=== PATIENT | female | born 1975 | race Caucasian/White ===

== ENCOUNTER 2016-09-07 17:14 | Emergency (ER) | payer MEDICAID ==
[2016-09-07] MEDS ORDERED: Ketorolac INJ* 30 MG/ML 1 ML VIAL IV ONE (19:17)
[2016-09-07] MEDS ORDERED: NS 0.9% 1000 ML* 1,000 ML IV ONE (19:17)
[2016-09-07] MEDS ORDERED: Ondansetron INJ* 2 MG/ML VIAL IV ONE (19:17)
[2016-09-07 20:02] LABS: Hematocrit 38 % (35-47); Hemoglobin 11.9 g/dl (12.0-16.0); Mean Corpuscular HGB Conc 32 g/dl (31-36); Mean Corpuscular Hemoglobin 23 pg (27-31); Mean Corpuscular Volume 73 fL (80-97); Mean Platelet Volume 8 um3 (7.4-10.4); Red Blood Count 5.15 10^6/ul (4.0-5.4); Red Cell Distribution Width 18 % (10.5-15); White Blood Count 8.8 10^3/ul (3.5-10.8)
[2016-09-07 20:14] LABS: Add Diff/Slide Review? Slide Review Added; Comments Flag Yes
--- NOTE | 2016-09-07 20:22 | ED ---
Nicky Disla Alok, scribed for Terry Gray MD on 09/07/16 at 1923 . Abdominal Pain/Female - HPI Summary HPI Summary: 41 y/o female with hx of brain tumors presents to the ED with c/o pain in her back, sides and flank bilaterally. Pt also adds she has been nauseous and unable to keep food down for the past 3 weeks following 30 rounds of radiation therapy. Pt is on nausea medication with no affect and has been taking Levaquin for a UTI since 5 days ago which has made her back pain as well as bilateral side and flank pain worse. - History of Current Complaint Chief Complaint: EDFlankPain Stated Complaint: FLANK PAIN/BACK PAIN Time Seen by Provider: 09/07/16 19:13 Hx Obtained From: Patient Hx Last Menstrual Period: DEPOPROVERA ?: No Onset/Duration: Gradual Onset, Lasting Weeks, Still Present Timing: Constant Severity Initially: Moderate Severity Currently: Moderate Pain Intensity: 5 Pain Scale Used: 0-10 Numeric Location: Flank - Bilateral Radiates to: Back, Other - Sides (bilaterally) Character: Sharp Aggravating Factor(s): Other: - Levaquin since 5 days ago Alleviating Factor(s): Nothing Associated Signs and Symptoms: Positive: Nausea Allergies/Adverse Reactions: Allergies Allergy/AdvReac Type Severity Reaction Status Date / Time Sulfamethoxazole Allergy Mild Stomach Verified 09/07/16 20:57 w/Trimethoprim Cramps [From Bactrim] Ampicillin AdvReac Hives Verified 09/07/16 20:57 Doxycycline AdvReac Hives Verified 09/07/16 20:57 Erythromycin AdvReac Stomach Verified 09/07/16 20:57 Cramps Fluconazole [From Diflucan] AdvReac Hives Verified 09/07/16 20:57 Nitrofurantoin AdvReac Hives Verified 09/07/16 20:57 [From Macrobid] PMH/Surg Hx/FS Hx/Imm Hx Endocrine/Hematology History: Reports: Hx Thyroid Disease Denies: Hx Diabetes Cardiovascular History: Reports: Hx Hypertension Denies: Hx Pacemaker/ICD Respiratory History: Denies: Hx Asthma, Hx Chronic Obstructive Pulmonary Disease (COPD) GI History: Denies: Hx Ulcer History: Denies: Hx Renal Disease Sensory History: Denies: Hx Hearing Aid Psychiatric History: Denies: Hx Panic Disorder - Cancer History Cancer Type, Location and Year: Brain Tumor x2 Date and Location of Last Treatment: 3 weeks ago Hx Radiation Therapy: Yes - 30 rounds Infectious Disease History: No Infectious Disease History: Denies: Hx Hepatitis, Hx Human Immunodeficiency Virus (HIV), History Other Infectious Disease, Traveled Outside the [place] in Last 30 Days - Family History Known Family History: Positive: Renal Disease Negative: Cardiac Disease, Diabetes - Social History Occupation: Unemployed Lives: With Family - Mother Alcohol Use: None Substance Use Type: Reports: None Smoking Status (MU): Never Smoked Tobacco Review of Systems Negative: Fever Positive: Abdominal Pain - Flank bilateral, Nausea Positive: Other - Back All Other Systems Reviewed And Are Negative: Yes Physical Exam Triage Information Reviewed: Yes Vital Signs On Initial Exam: Initial Vitals Temp Pulse Resp BP Pulse Ox 97.3 F 101 16 153/87 100 09/07/16 17:26 09/07/16 17:26 09/07/16 17:26 09/07/16 17:26 09/07/16 17:26 Vital Signs Reviewed: Yes Appearance: Positive: No Pain Distress, Obese Skin: Positive: Warm Head/Face: Positive: Normal Head/Face Inspection Eyes: Positive: ENOC ENT: Positive: Hearing grossly normal Neck: Positive: Supple Respiratory/Lung Sounds: Positive: Clear to Auscultation, Breath Sounds Present Cardiovascular: Positive: RRR Abdomen Description: Positive: Nontender, Soft. Negative: CVA Tenderness (R), CVA Tenderness (L) Bowel Sounds: Positive: Present Musculoskeletal: Positive: Strength/ROM Intact Neurological: Positive: Sensory/Motor Intact, Alert, Oriented to Person Place, Time Psychiatric: Positive: Affect/Mood Appropriate Diagnostics - Vital Signs Vital Signs Temp Pulse Resp BP Pulse Ox 09/07/16 18:36 97.5 F 95 16 149/85 100 09/07/16 17:26 97.3 F 101 16 153/87 100 - Laboratory Lab Results: Lab Results 09/07/16 Range/Units 19:50 WBC 8.8 (3.5-10.8) 10^3/ul RBC 5.15 (4.0-5.4) 10^6/ul Hgb 11.9 L (12.0-16.0) g/dl Hct 38 (35-47) % MCV 73 L (80-97) fL MCH 23 L (27-31) pg MCHC 32 (31-36) g/dl RDW 18 H (10.5-15) % Plt Count 335 (150-450) 10^3/ul MPV 8 (7.4-10.4) um3 Neut % (Auto) 50.6 (38-83) % Lymph % (Auto) 35.7 (25-47) % Wolfe % (Auto) 9.5 H (1-9) % Eos % (Auto) 2.8 (0-6) % Baso % (Auto) 1.4 (0-2) % Absolute Neuts (auto) 4.4 (1.5-7.7) 10^3/ul Absolute Lymphs (auto) 3.1 (1.0-4.8) 10^3/ul Absolute Monos (auto) 0.8 (0-0.8) 10^3/ul Absolute Eos (auto) 0.2 (0-0.6) 10^3/ul Absolute Basos (auto) 0.1 (0-0.2) 10^3/ul Absolute Nucleated RBC 0 10^3/ul Nucleated RBC % 0 Result Diagrams: 09/07/16 19:50 09/07/16 19:50 Lab Statement: Any lab studies that have been ordered have been reviewed, and results considered in the medical decision making process. Re-Evaluation - Re-Evaluation First Eval Re-Evaluation Time: 20:49 Change: Improved - results d/w pt Abdominal Pain Fem Course/Dx - Diagnoses Provider Diagnoses: FLANK PAIN Discharge - Discharge Plan Condition: Stable Disposition: HOME Patient Education Materials: Flank Pain (ED) Referrals: No Primary Care Phys,NOPCP [Primary Care Provider] - [facility] [Outside] - 5 Days Additional Instructions: Please follow up with a primary care provider later this week The documentation as recorded by the Nicky tamayo Alok accurately reflects the service I personally performed and the decisions made by , Terry Gray MD.
[2016-09-07 20:25] LABS: BUN/Creatinine Ratio 7.7 (8-20); C Reactive Protein 14.38 mg/L (< 5.00); EGFR African American 74.7 (>60); EGFR Non-African American 58.1 (>60); Globulin 3.3 g/dL (2-4); Potassium 3.5 mmol/L (3.5-5.0); Total Bilirubin 0.3 mg/dL (0.2-1.0); Total Protein 7.3 g/dL (6.4-8.9)
[2016-09-07 20:31] LABS: Urine Bacteria 1+ (Absent); Urine Bilirubin Negative (Negative); Urine Glucose Negative (Negative); Urine Nitrite Negative (Negative)
[2016-09-07 20:56] VITALS: BP 133/87
== END 2016-09-07 21:02 | disposition home or self-care (01) ==
LOC: ED 17:14
DX: R10.84 Generalized abdominal pain (principal); M54.9 Dorsalgia, unspecified; R11.0 Nausea
CPT/HCPCS: 36415; 80053; 81003; 81015; 83605; 83690; 83735; 84702; 85025; 86140; 87086; 96374; 96375; 99283; J1885; J2405

== ENCOUNTER 2017-10-08 17:31 | Emergency (ER) | payer BC, OTHER ==
[2017-10-08] MEDS ORDERED: diPHENhydraMINE IV* 50 MG/ML 1 ml VIAL (BENADRYL) IV ONE (19:00)
[2017-10-08] MEDS ORDERED: Metoclopramide IV* 5 MG/ML 2 ML VIAL IV ONE (19:00)
[2017-10-08] MEDS ORDERED: NS 0.9% 1000 ML* 1,000 ML IV ONE (19:00)
[2017-10-08] MEDS ORDERED: Morphine INJ* 10 MG/ML 1 ML CARPUJECT IV ONE (19:00)
[2017-10-08] MEDS ORDERED: Morphine VIAL* 4 MG/ML VIAL (1 ml vial) IV ONE (19:34)
--- NOTE | 2017-10-08 20:35 | RAD ---
Indication: Headache for 4 days. History of brain tumors. Comparison: December 26, 2015 MRI. Technique: Noncontrast CT head. 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 Similar involvement at the RIGHT clinoid process and margins of the sella turcica. Unchanged extensive indolent thickening of the inner table of the frontal bone. Unremarkable cerebral sulci, ventricles, and patent basal cisterns. No intra or extra-axial soft tissue lesions or fluid collections evident within limits of noncontrast CT. Negative for coronado matter white matter obscuration intra or extra-axial hemorrhage, or mass effect. No suspicious abnormality within the partially visualized orbits. Clear partially visualized paranasal sinuses and mastoid air spaces. IMPRESSION: 1. Negative for intra or extra-axial hemorrhage or mass effect. 2. Negative for coronado matter white matter obscuration. 3. 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 Similar involvement at the RIGHT clinoid process and margins of the sella turcica. 4. Most accurate follow-up of previous extra-axial lesion at the skull base would require contrast-enhanced MRI. Correlate with clinical assessment. The patient may have had a more recent MRI follow-up then the December 26, 2015 exam on [facility].
--- NOTE | 2017-10-08 21:14 | ED ---
Mark Disla Elizabeth, scribed for Filippo Marie on 10/08/17 at 1919 . Headache - HPI Summary HPI Summary: This patient is a 42 year old F presenting to [facility] c/o throbbing headache since 4 days ago Patient has a history of 2 brain tumors and finished radiation 1 year ago. Symptoms aggravated by nothing. Symptoms alleviated by nothing. Patient reports swelling at the back of her neck, and intermittent numbness in arms and legs. Patient denies fever. - History Of Current Complaint Chief Complaint: EDHeadache Stated Complaint: HEADACHE X 4 DAYS/2 BRAIN TUMORS Time Seen by Provider: 10/08/17 18:36 Hx Obtained From: Patient Hx Last Menstrual Period: DEPOPROVERA Onset/Duration: Started days ago - started 4 days ago, Still Present Initially Headache Was: Moderate Currently Pain Is: Moderate Timing: Constant, Days Character: Throbbing Location of Headache: Diffuse Aggravating Factor: Nothing Allevating Factors: Nothing Associated Signs And Symptoms: Neck Pain, Other (Noted In Comments) - numbness in extremities - Allergies/Home Medications Allergies/Adverse Reactions: Allergies Allergy/AdvReac Type Severity Reaction Status Date / Time ampicillin Allergy Hives Verified 10/08/17 18:17 doxycycline Allergy Hives Verified 10/08/17 18:17 fluconazole [From Diflucan] Allergy Hives Verified 10/08/17 18:17 nitrofurantoin Allergy Hives Verified 10/08/17 18:17 [From Macrobid] erythromycin base AdvReac Stomach Verified 10/08/17 18:17 Cramps sulfamethoxazole AdvReac Stomach Verified 10/08/17 18:17 [From Bactrim] Cramps trimethoprim [From Bactrim] AdvReac Stomach Verified 10/08/17 18:17 Cramps PMH/Surg Hx/FS Hx/Imm Hx Endocrine/Hematology History: Reports: Hx Thyroid Disease Denies: Hx Diabetes Cardiovascular History: Reports: Hx Hypertension Denies: Hx Pacemaker/ICD Respiratory History: Denies: Hx Asthma, Hx Chronic Obstructive Pulmonary Disease (COPD) GI History: Denies: Hx Ulcer History: Denies: Hx Renal Disease Musculoskeletal History: Reports: Hx Fibromyalgia Sensory History: Denies: Hx Hearing Aid Psychiatric History: Denies: Hx Panic Disorder - Cancer History Cancer Type, Location and Year: Brain Tumor x2 Hx Radiation Therapy: Yes - 30 rounds - Immunization History Date of Tetanus Vaccine: unk Date of Influenza Vaccine: unk Infectious Disease History: No Infectious Disease History: Denies: Hx Hepatitis, Hx Human Immunodeficiency Virus (HIV), History Other Infectious Disease, Traveled Outside the [place] in Last 30 Days - Family History Known Family History: Positive: Unknown, Renal Disease Negative: Cardiac Disease, Diabetes - Social History Alcohol Use: None Substance Use Type: Reports: None Smoking Status (MU): Never Smoked Tobacco Review of Systems Negative: Fever Positive: Edema - swelling in posterior neck Positive: Headache, Numbness - in extremities All Other Systems Reviewed And Are Negative: Yes Physical Exam - Summary Physical Exam Summary: Appearance: Well appearing, no pain distress Skin: warm, dry, reflects adequate perfusion Head/face: normal Eyes: EOMI, ENOC ENT: normal Neck: supple, non-tender Respiratory: CTA, breath sounds present Cardiovascular: RRR, pulses symmetrical ~ Abdomen: non-tender, soft Bowel: present Musculoskeletal: normal, strength/ROM intact Neuro: normal, sensory motor intact, A&Ox3 Triage Information Reviewed: Yes Vital Signs On Initial Exam: Initial Vitals Temp Pulse Resp BP Pulse Ox 97.1 F 113 20 147/113 98 10/08/17 17:33 10/08/17 17:33 10/08/17 17:33 10/08/17 17:33 10/08/17 17:33 Vital Signs Reviewed: Yes Diagnostics - Vital Signs Vital Signs Temp Pulse Resp BP Pulse Ox 10/08/17 17:33 97.1 F 113 20 147/113 98 - Laboratory Lab Statement: Any lab studies that have been ordered have been reviewed, and results considered in the medical decision making process. - CT Brain CT CT Interpretation: Positive (See Comments) - IMPRESSION: 1. Negative for intra or extra-axial hemorrhage or mass effect. 2. Negative for coronado matter white matter obscuration. 3. 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 Similar involvement at the RIGHT clinoid process and margins of the sella turcica. 4. Most accurate follow-up of previous extra-axial lesion at the skull base would require contrast-enhanced MRI. Correlate with clinical assessment. The patient may have had a more recent MRI follow-up then the December 26, 2015 exam on [facility] [place] [facility]. Dr. Marie has reviewed this report. CT Interpretation Completed By: Radiologist Re-Evaluation - Re-Evaluation first re-eval Re-Evaluation Time: 21:05 Change: Unchanged Comment: Discussed imaging results and course of treatment with the patient Headache Course/Dx - Course Course Of Treatment: CT Brain reveals, per radiologist, no acute changes. ED physician has reviewed this radiology report. n the ED course the patient was given IV fluids, morphine, Reglan, and Benadryl. We discussed patient care with Dr. Rubén Daley, neurology, and they recommended that the patient be discharged and follow up with him. Patient will be discharged home with diagnosis of headache and is advised to follow up with her primary care physician in 3-4 days. The patient is agreeable with this plan. - Diagnoses Provider Diagnoses: Headache - Physician Notifications Discussed Care Of Patient With: Rubén Daley MD Instructed by Provider To: Other - Dr. Daley, neurology, recommended that the patient be discharged. Discharge - Sign-Out/Discharge Documenting (check all that apply): Discharge/Admit/Transfer - Discharge Plan Condition: Stable Disposition: HOME Patient Education Materials: Acute Headache (ED) Referrals: Angelita ANGEL ACCOUNTS RECEIVABLE COLLECTOR,Sagrario [Primary Care Provider] - 3 Days (Follow up with primary care physician in 3-4 days.) Additional Instructions: Follow up with primary care physician in 3-4 days. Return to the emergency department with any new or worsening symptoms. - Billing Disposition and Condition Condition: STABLE Disposition: HOME The documentation as recorded by the Mark tamayo Elizabeth accurately reflects the service I personally performed and the decisions made by , Filippo Marie.
[2017-10-08 21:34] VITALS: BP 126/80
== END 2017-10-08 21:30 | disposition home or self-care (01) ==
LOC: ED 17:31
DX: M54.2 Cervicalgia (principal); R51 Headache
CPT/HCPCS: 70450; 99283; J1200; J2270; J2765

== ENCOUNTER 2017-10-24 16:15 | Emergency (ER) | payer BC, OTHER ==
[2017-10-24 16:23] VITALS: BP 144/91
--- NOTE | 2017-10-24 16:46 | UC ---
Upper Extremity HPI - HPI Summary HPI Summary: 42 yo female with multiple medical problems who presents with L arm pain. Patient slipped and fell 2d ago with progressive pain and decreased ROM since that time. No bruising. She also took an engorged tick off her back a couple of days ago. No rash or fevers. - History of Current Complaint Chief Complaint: UCUpperExtremity Stated Complaint: ARM INJURY Hx Last Menstrual Period: depo Pain Intensity: 7 - Allergies/Home Medications Allergies/Adverse Reactions: Allergies Allergy/AdvReac Type Severity Reaction Status Date / Time ampicillin Allergy Hives Verified 10/24/17 16:23 doxycycline Allergy Hives Verified 10/24/17 16:23 fluconazole [From Diflucan] Allergy Hives Verified 10/24/17 16:23 nitrofurantoin Allergy Hives Verified 10/24/17 16:23 [From Macrobid] erythromycin base AdvReac Stomach Verified 10/24/17 16:23 Cramps sulfamethoxazole AdvReac Stomach Verified 10/24/17 16:23 [From Bactrim] Cramps trimethoprim [From Bactrim] AdvReac Stomach Verified 10/24/17 16:23 Cramps Home Medications: Home Medications Oxymorphone HCl [Opana] 20 mg PO BID 10/24/17 [History Confirmed 10/24/17] PMH/Surg Hx/FS Hx/Imm Hx Previously Healthy: No - brain tumor, fibromyalgia - Surgical History Surgical History: None - Family History Known Family History: Positive: Unknown, Renal Disease Negative: Cardiac Disease, Diabetes - Social History Alcohol Use: None Alcohol Amount: allergic Substance Use Type: None Smoking Status (MU): Never Smoked Tobacco - Immunization History Most Recent Tetanus Shot: approx 2 years ago Review of Systems Constitutional: Negative Skin: Negative Eyes: Negative ENT: Negative Respiratory: Negative Cardiovascular: Negative Gastrointestinal: Negative Genitourinary: Negative Motor: Negative Neurovascular: Negative Musculoskeletal: Arthralgia, Myalgia Neurological: Negative Psychological: Negative Is Patient Immunocompromised?: No All Other Systems Reviewed And Are Negative: Yes Physical Exam Triage Information Reviewed: Yes Appearance: Well-Appearing Vital Signs: Initial Vital Signs Temp 97.2 F 10/24/17 16:20 Pulse 106 10/24/17 16:20 Resp 18 10/24/17 16:20 BP 144/91 10/24/17 16:20 Pulse Ox 100 10/24/17 16:20 Vital Signs Reviewed: Yes ENT Exam: Normal Neck exam: Normal Respiratory Exam: Normal Cardiovascular Exam: Normal Abdominal Exam: Normal Musculoskeletal: Positive: Other: - limited ROM at L elbow and shoulder, TTP over L elbow and shoulder region and posterior arm Neurological Exam: Normal Psychological Exam: Normal Skin Exam: Normal Diagnostics - Laboratory Diagnostic Studies Completed/Ordered: XR elbow - no acute bony injury. XR shoulder - no acute bony injury Upper Extremity Course/Dx - Course Course Of Treatment: 42 yo female with c/o L shoulder and elbow pain after a fall 2d ago. No bony injury on XR. Diffuse TTP on exam, likely due to muscle spasm. Recommend use of a muscle relaxant and application of heat. - Differential Dx/Diagnosis Differential Diagnosis/HQI/PQRI: Arthritis, Fracture (Closed), Hematoma, Laceration Provider Diagnoses: L arm contusion Discharge - Sign-Out/Discharge Documenting (check all that apply): Discharge/Admit/Transfer - Discharge Plan Condition: Stable Disposition: HOME Prescriptions: Cyclobenzaprine TAB* [Flexeril 10 MG TAB*] 10 mg PO TID PRN #30 tab PRN Reason: muscle spasm Patient Education Materials: Contusion in Adults (ED) Referrals: Angelita ANGEL BENCH ASSEMBLER BATTERYSagrario [Primary Care Provider] - Additional Instructions: Instructions: 1. Use muscle relaxants as prescribed 2. Continue other pain medications - Billing Disposition and Condition Condition: STABLE Disposition: HOME
--- NOTE | 2017-10-24 17:07 | RAD ---
INDICATION: Fall. Pain. COMPARISON: None TECHNIQUE: Routine frontal, Y and axial views were obtained. FINDINGS: The bony structures, joint spaces, and soft tissues are normal for age. IMPRESSION: NO ACUTE BONY FINDINGS.
--- NOTE | 2017-10-24 17:07 | RAD ---
INDICATION: Left elbow injury COMPARISON: None TECHNIQUE: AP and lateral views were obtained. FINDINGS: The bony structures, joint spaces, and soft tissues are normal for age. IMPRESSION: NO ACUTE FRACTURE.
== END 2017-10-24 17:20 | disposition home or self-care (01) ==
LOC: UCEAST 16:15
DX: S40.022A Contusion of left upper arm, initial encounter (principal); W01.0XXA Fall on same level from slipping, tripping and stumbling without subsequent striking against object, initial encounter; S20.469A Insect bite (nonvenomous) of unspecified back wall of thorax, initial encounter; W57.XXXA Bitten or stung by nonvenomous insect and other nonvenomous arthropods, initial encounter; Y93.9 Activity, unspecified; Y92.9 Unspecified place or not applicable; Z88.1 Allergy status to other antibiotic agents; Z88.0 Allergy status to penicillin; Z88.2 Allergy status to sulfonamides
CPT/HCPCS: 99212; G0463

== ENCOUNTER 2018-06-30 19:46 | Emergency (ER) | payer BC, MEDICAID ==
[2018-06-30 23:49] LABS: Hematocrit 36 % (35-47); Hemoglobin 11.4 g/dl (12.0-16.0); Mean Corpuscular HGB Conc 32 g/dl (31-36); Mean Corpuscular Hemoglobin 23 pg (27-31); Mean Corpuscular Volume 70 fL (80-97); Mean Platelet Volume 8.2 fL (7.4-10.4); Platelet Count 367 10^3/ul (150-450); Red Blood Count 5.08 10^6/ul (4.00-5.40); Red Cell Distribution Width 18 % (10.5-15); White Blood Count 8.6 10^3/ul (3.5-10.8)
[2018-06-30 23:53] LABS: INR 1.06 (0.77-1.02)
[2018-07-01 00:02] LABS: Albumin 4.1 g/dL (3.2-5.2); Albumin/Globulin Ratio 1.2 (1-3); BUN/Creatinine Ratio 7.8 (8-20); C Reactive Protein 10.52 mg/L (<8.01); Calcium 9.1 mg/dL (8.6-10.3); EGFR African American 82.3 (>60); Globulin 3.4 g/dL (2-4); Potassium 3.9 mmol/L (3.5-5.0); Total Bilirubin 0.3 mg/dL (0.2-1.0); Total Protein 7.5 g/dL (6.4-8.9)
[2018-07-01] MEDS ORDERED: Metoclopramide IV* 5 MG/ML 2 ML VIAL IV ONE (00:19)
[2018-07-01] MEDS ORDERED: Ketorolac INJ* 30 MG/ML 1 ML VIAL IV ONE (00:19)
[2018-07-01] MEDS ORDERED: NS 0.9% 1000 ML* 1,000 ML IV ONE (00:20)
[2018-07-01] MEDS ORDERED: diPHENhydraMINE PO* 25 MG PO ONE (00:20)
[2018-07-01 00:50] LABS: ABS Basophils 0.1 10^3/ul (0-0.2); ABS Eosinophils 0.1 10^3/ul (0-0.6); ABS Lymphocytes 1.8 10^3/ul (1.0-4.8); ABS Monocytes 0.6 10^3/ul (0-0.8); ABS Nucleated RBC 0 10^3/ul; Eosinophil % 1.6 %; Lymphocyte % 21.2 %; Microcytosis 1+; Nucleated Red Blood Cells % 0
--- NOTE | 2018-07-01 02:10 | ED ---
Headache - HPI Summary HPI Summary: Patient with history of to active brain tumors being followed by a neurosurgeon Dr. Jennings at [place] complains of occipital headache starting at 3 PM today. Patient states she tried Opana 20 mg at 5:30 and oxymorphone at 10 mg at 6:30 PM with no improvement in symptoms. Headache described as a pressure, worse with movement. Associated symptoms are photosensitivity and intermittent blurry vision, nausea. Patient states headaches are usually improved with opiate treatment. Denies focal deficits, fever, cough, sore throat, CP, SOB, V/ D, abdominal pain, change in urine, change in BM. Medical history is HTN, hypothyroid, 2 brain tumors. - History Of Current Complaint Chief Complaint: EDHeadache Stated Complaint: CONFUSED, HEADACHE/PRESSURE Time Seen by Provider: 06/30/18 23:20 Hx Obtained From: Patient Hx Last Menstrual Period: depo Onset/Duration: Sudden Onset Initially Headache Was: Moderate Currently Pain Is: Moderate Timing: Constant Character: Throbbing, Pressure Location of Headache: Occipital Aggravating Factor: Bright Lights Allevating Factors: Nothing Associated Signs And Symptoms: Nausea, Visual Changes - Allergies/Home Medications Allergies/Adverse Reactions: Allergies Allergy/AdvReac Type Severity Reaction Status Date / Time ampicillin Allergy Hives Verified 06/19/18 13:08 doxycycline Allergy Hives Verified 06/19/18 13:08 fluconazole [From Diflucan] Allergy Hives Verified 06/19/18 13:08 nitrofurantoin Allergy Hives Verified 06/19/18 13:08 [From Macrobid] erythromycin base AdvReac Stomach Verified 06/19/18 13:08 Cramps sulfamethoxazole AdvReac Stomach Verified 06/19/18 13:08 [From Bactrim] Cramps trimethoprim [From Bactrim] AdvReac Stomach Verified 06/19/18 13:08 Cramps PMH/Surg Hx/FS Hx/Imm Hx Endocrine/Hematology History: Reports: Hx Thyroid Disease Denies: Hx Diabetes Cardiovascular History: Reports: Hx Hypertension Denies: Hx Pacemaker/ICD Respiratory History: Denies: Hx Asthma, Hx Chronic Obstructive Pulmonary Disease (COPD) GI History: Denies: Hx Ulcer History: Denies: Hx Dialysis, Hx Renal Disease Musculoskeletal History: Reports: Hx Fibromyalgia Sensory History: Denies: Hx Eye Prosthesis, Hx Hearing Aid EENT History: Denies: Hx Deafness Neurological History: Denies: Hx Developmental Delay Psychiatric History: Denies: Hx Autism, Hx Panic Disorder - Cancer History Cancer Type, Location and Year: Brain Tumor x2 Hx Radiation Therapy: Yes - 30 rounds - Immunization History Date of Tetanus Vaccine: unk Date of Influenza Vaccine: unk Infectious Disease History: No Infectious Disease History: Denies: Hx Hepatitis, Hx Human Immunodeficiency Virus (HIV), History Other Infectious Disease, Traveled Outside the [place] in Last 30 Days - Family History Known Family History: Positive: Unknown, Renal Disease Negative: Cardiac Disease, Diabetes - Social History Alcohol Use: None Alcohol Amount: allergic Substance Use Type: Reports: None Smoking Status (MU): Never Smoked Tobacco Review of Systems Constitutional: Negative Eyes: Negative ENT: Negative Cardiovascular: Negative Respiratory: Negative Gastrointestinal: Negative Positive: Nausea Genitourinary: Negative Musculoskeletal: Negative Skin: Negative Positive: Headache Psychological: Normal All Other Systems Reviewed And Are Negative: Yes Physical Exam - Summary Physical Exam Summary: Neuro exam normal. Triage Information Reviewed: Yes Vital Signs On Initial Exam: Initial Vitals Temp Pulse Resp BP Pulse Ox 97.4 F 80 20 145/88 100 06/30/18 19:48 06/30/18 19:48 06/30/18 19:48 06/30/18 19:48 06/30/18 19:48 Vital Signs Reviewed: Yes Appearance: Positive: Well-Appearing Skin: Positive: Warm Head/Face: Positive: Normal Head/Face Inspection Eyes: Positive: Normal ENT: Positive: Normal ENT inspection Neck: Positive: Supple Respiratory/Lung Sounds: Positive: Clear to Auscultation Cardiovascular: Positive: Normal Abdomen Description: Positive: Nontender Musculoskeletal: Positive: Normal Neurological: Positive: Normal Psychiatric: Positive: Normal AVPU Assessment: Alert - Mullens Coma Scale Best Eye Response: 4 - Spontaneous Best Motor Response: 6 - Obeys Commands Best Verbal Response: 5 - Oriented Coma Scale Total: 15 Diagnostics - Vital Signs Vital Signs Temp Pulse Resp BP Pulse Ox 07/01/18 01:00 78 97 07/01/18 00:34 85 139/98 98 07/01/18 00:05 79 97 07/01/18 00:04 75 135/68 97 06/30/18 23:02 98 F 73 16 147/89 100 06/30/18 19:48 97.4 F 80 20 145/88 100 - Laboratory Lab Results: Lab Results 06/30/18 06/30/18 06/30/18 Range/Units 23:38 23:38 23:38 WBC 8.6 (3.5-10.8) 10^3/ul RBC 5.08 (4.00-5.40) 10^6/ul Hgb 11.4 L (12.0-16.0) g/dl Hct 36 (35-47) % MCV 70 L (80-97) fL MCH 23 L (27-31) pg MCHC 32 (31-36) g/dl RDW 18 H (10.5-15) % Plt Count 367 (150-450) 10^3/ul MPV 8.2 (7.4-10.4) fL Neut % (Auto) 70.0 % Lymph % (Auto) 21.2 % [place] % (Auto) 6.5 % Eos % (Auto) 1.6 % Baso % (Auto) 0.7 % Absolute Neuts (auto) 6.0 (1.5-7.7) 10^3/ul Absolute Lymphs (auto) 1.8 (1.0-4.8) 10^3/ul Absolute Monos (auto) 0.6 (0-0.8) 10^3/ul Absolute Eos (auto) 0.1 (0-0.6) 10^3/ul Absolute Basos (auto) 0.1 (0-0.2) 10^3/ul Absolute Nucleated RBC 0 10^3/ul Nucleated RBC % 0 Microcytosis 1+ INR (Anticoag Therapy) 1.06 H (0.77-1.02) Sodium 141 (135-145) mmol/L Potassium 3.9 (3.5-5.0) mmol/L Chloride 108 (101-111) mmol/L Carbon Dioxide 26 (22-32) mmol/L Anion Gap 7 (2-11) mmol/L BUN 7 (6-24) mg/dL Creatinine 0.90 (0.51-0.95) mg/dL Est GFR ( Amer) 82.3 (>60) Est GFR (Non-Af Amer) 68.0 (>60) BUN/Creatinine Ratio 7.8 L (8-20) Glucose 116 H (70-100) mg/dL Calcium 9.1 (8.6-10.3) mg/dL Total Bilirubin 0.30 (0.2-1.0) mg/dL AST 15 (13-39) U/L ALT 12 (7-52) U/L Alkaline Phosphatase 95 (34-104) U/L C-Reactive Protein 10.52 H (<8.01) mg/L Total Protein 7.5 (6.4-8.9) g/dL Albumin 4.1 (3.2-5.2) g/dL Globulin 3.4 (2-4) g/dL Albumin/Globulin Ratio 1.2 (1-3) Result Diagrams: 06/30/18 23:38 06/30/18 23:38 Lab Statement: Any lab studies that have been ordered have been reviewed, and results considered in the medical decision making process. Headache Course/Dx - Course Course Of Treatment: Patient with history of to active brain tumors being followed by a neurosurgeon Dr. Jennings at [place] complains of occipital headache starting at 3 PM today. Patient states she tried Opana 20 mg at 5:30 and oxymorphone at 10 mg at 6:30 PM with no improvement in symptoms. Headache described as a pressure, worse with movement. Associated symptoms are photosensitivity and intermittent blurry vision, nausea. Patient states headaches are usually improved with opiate treatment. Denies focal deficits, fever, cough, sore throat, CP, SOB, V/D, abdominal pain, change in urine, change in BM. Medical history is HTN, hypothyroid, 2 brain tumors. Physical exam: Neuro exam normal. Patient denies any active vision symptoms at this time. Vital signs within normal limits. CT brain similar to prior PR. Patient 's symptoms controlled with migraine cocktail. Follow-up with neurosurgery in [place]. Patient has scheduled MRI in early July. - Diagnoses Provider Diagnoses: Headache Discharge - Sign-Out/Discharge Documenting (check all that apply): Patient Departure - Discharge Plan Condition: Stable Disposition: HOME Patient Education Materials: Acute Headache (ED) Referrals: Jewels Foy [Primary Care Provider] - Additional Instructions: Follow-up with your neurologist. Return to the ED for any new or worsening symptoms. - Billing Disposition and Condition Condition: STABLE Disposition: Home
[2018-07-01 02:20] VITALS: BP 106/74
== END 2018-07-01 01:28 | disposition home or self-care (01) ==
LOC: ED 19:46
DX: R51 Headache (principal); R11.0 Nausea; I10 Essential (primary) hypertension; Z88.0 Allergy status to penicillin; Z88.2 Allergy status to sulfonamides; Z85.841 Personal history of malignant neoplasm of brain; R41.0 Disorientation, unspecified
CPT/HCPCS: 36415; 70450; 80053; 85025; 85610; 86140; 96374; 96375; 96376; 99283; A9270-GY; J1885; J2765

== ENCOUNTER 2018-10-05 17:59 | Emergency (ER) | payer BC, MEDICAID ==
[2018-10-05 18:25] VITALS: BP 123/76
--- NOTE | 2018-10-05 18:43 | ED ---
Headache - HPI Summary HPI Summary: 43 year old female presents with ear pain today. She states is bilateral. She denies any decreased hearing. She states she does not have a history of ear infections. She has a history two brain tumor and one of them is in her sinuses. Denies any sinus congestion. No sore throat. No fever. No neck stiffness. this headache is no different than her normal headaches. She has not followed with the neurologist. No visual changes. States this is a normal headache. not worse headache of life. - History Of Current Complaint Chief Complaint: UCHeadInjury Stated Complaint: HEADACHE Time Seen by Provider: 10/05/18 18:28 Hx Last Menstrual Period: depo - Allergies/Home Medications Allergies/Adverse Reactions: Allergies Allergy/AdvReac Type Severity Reaction Status Date / Time ampicillin Allergy Hives Verified 10/05/18 18:15 doxycycline Allergy Hives Verified 10/05/18 18:15 fluconazole [From Diflucan] Allergy Hives Verified 10/05/18 18:15 nitrofurantoin Allergy Hives Verified 10/05/18 18:15 [From Macrobid] erythromycin base AdvReac Stomach Verified 10/05/18 18:15 Cramps sulfamethoxazole AdvReac Stomach Verified 10/05/18 18:15 [From Bactrim] Cramps trimethoprim [From Bactrim] AdvReac Stomach Verified 10/05/18 18:15 Cramps Home Medications: Home Medications Sucralfate [Carafate] 1 gm PO QID 10/05/18 [History Confirmed 10/05/18] PMH/Surg Hx/FS Hx/Imm Hx Endocrine/Hematology History: Reports: Hx Thyroid Disease Denies: Hx Diabetes Cardiovascular History: Reports: Hx Hypertension Denies: Hx Pacemaker/ICD Respiratory History: Denies: Hx Asthma, Hx Chronic Obstructive Pulmonary Disease (COPD) GI History: Denies: Hx Ulcer History: Denies: Hx Dialysis, Hx Renal Disease Musculoskeletal History: Reports: Hx Fibromyalgia Sensory History: Denies: Hx Eye Prosthesis, Hx Deafness, Hx Hearing Aid Opthamlomology History: Denies: Hx Eye Prosthesis Neurological History: Denies: Hx Developmental Delay Psychiatric History: Denies: Hx Autism, Hx Panic Disorder - Cancer History Cancer Type, Location and Year: Brain Tumor x2. stomach ulcer Hx Radiation Therapy: Yes - 30 rounds - Surgical History Surgery Procedure, Year, and Place: intranasal tumor biopsy from brain - Immunization History Date of Tetanus Vaccine: unk Date of Influenza Vaccine: unk Infectious Disease History: No Infectious Disease History: Denies: Hx Hepatitis, Hx Human Immunodeficiency Virus (HIV), History Other Infectious Disease, Traveled Outside the [place] in Last 30 Days - Family History Known Family History: Positive: Unknown, Renal Disease Negative: Cardiac Disease, Diabetes - Social History Alcohol Use: None Alcohol Amount: allergic Substance Use Type: Reports: None Smoking Status (MU): Never Smoked Tobacco Review of Systems Negative: Fever Positive: Ear Ache Negative: Chest Pain Negative: Shortness Of Breath Positive: Headache All Other Systems Reviewed And Are Negative: Yes Physical Exam Triage Information Reviewed: Yes Vital Signs On Initial Exam: Initial Vitals Temp Pulse Resp BP Pulse Ox 98.5 F 89 18 123/76 97 10/05/18 18:14 10/05/18 18:14 10/05/18 18:14 10/05/18 18:14 10/05/18 18:14 Vital Signs Reviewed: Yes Appearance: Positive: Well-Appearing Skin: Positive: Warm, Dry Head/Face: Positive: Normal Head/Face Inspection Eyes: Positive: Normal, EOMI, ENOC, Conjunctiva Clear ENT: Positive: Pharynx normal, TMs normal - fluid behind bilateral ears. Negative: TM bulging, TM dull, TM red Neck: Positive: Supple, Nontender, No Lymphadenopathy Respiratory/Lung Sounds: Positive: Clear to Auscultation, Breath Sounds Present Cardiovascular: Positive: Normal, RRR Musculoskeletal: Positive: Normal Neurological: Positive: Sensory/Motor Intact, Alert, Oriented to Person Place, Time, CN Intact II-III Psychiatric: Positive: Normal - Lawrence Coma Scale Best Eye Response: 4 - Spontaneous Best Motor Response: 6 - Obeys Commands Best Verbal Response: 5 - Oriented Coma Scale Total: 15 Diagnostics - Vital Signs Vital Signs Temp Pulse Resp BP Pulse Ox 10/05/18 18:14 98.5 F 89 18 123/76 97 - Laboratory Lab Statement: Any lab studies that have been ordered have been reviewed, and results considered in the medical decision making process. Headache Course/Dx - Course Course Of Treatment: 43 year old female presents with ear pain today. She states is bilateral. She denies any decreased hearing. She states she does not have a history of ear infections. She has a history two brain tumor and one of them is in her sinuses. Denies any sinus congestion. No sore throat. No fever. No neck stiffness. this headache is no different than her normal headaches. She has not followed with the neurologist. No visual changes. States this is a normal headache. not worse headache of life. On exam has normal neuro exam. TMs normal. Does have some fluid behind TMs could be a Eustachian tube dysfunction. Told to suck on hard candies. Told to follow up with neurologist. warned if any worsening symptoms to go to the ER. Patient understands agrees plan. - Diagnoses Differential Diagnosis/HQI/PQRI: Sinus Headache, Viral Syndrome, Other - otities media and externa Provider Diagnoses: Headache Discharge - Sign-Out/Discharge Documenting (check all that apply): Patient Departure All imaging exams completed and their final reports reviewed: No Studies - Discharge Plan Condition: Good Disposition: HOME Patient Education Materials: Acute Headache (ED) Referrals: Jewels Foy [Primary Care Provider] - Additional Instructions: follow up with neurologist suck on hard candies Return to ED if develop any new or worsening symptoms - Billing Disposition and Condition Condition: GOOD Disposition: Home - Attestation Statements Provider Attestation: I did not see or disposition this patient. I was available for consult.
== END 2018-10-05 18:45 | disposition home or self-care (01) ==
LOC: UCEAST 17:59
DX: R51 Headache (principal); H92.03 Otalgia, bilateral; E07.9 Disorder of thyroid, unspecified; I10 Essential (primary) hypertension; M79.7 Fibromyalgia; Z86.011 Personal history of benign neoplasm of the brain; Z88.1 Allergy status to other antibiotic agents; Z88.0 Allergy status to penicillin; Z88.2 Allergy status to sulfonamides
CPT/HCPCS: 99201; G0463

== ENCOUNTER 2019-06-04 17:51 | Emergency (ER) | payer BC, MEDICAID ==
[2019-06-04 18:49] LABS: ABS Basophils 0.1 10^3/ul (0-0.2); ABS Eosinophils 0.3 10^3/ul (0-0.6); ABS Lymphocytes 2.4 10^3/ul (1.0-4.8); ABS Monocytes 0.6 10^3/ul (0-0.8); Eosinophil % 3.5 %; Hematocrit 41 % (35-47); Hemoglobin 13.3 g/dL (12.0-16.0); Lymphocyte % 28.3 %; Mean Corpuscular HGB Conc 33 g/dL (31-36); Mean Corpuscular Hemoglobin 24 pg (27-31); Mean Corpuscular Volume 75 fL (80-97); Mean Platelet Volume 8.2 fL (7.4-10.4); Nucleated Red Blood Cells % 0.1; Platelet Count 360 10^3/uL (150-450); Red Blood Count 5.46 10^6 /uL (3.70-4.87); Red Cell Distribution Width 16 % (10-15); White Blood Count 8.4 10^3/uL (3.5-10.8)
--- NOTE | 2019-06-04 19:06 | ED ---
GI/ HPI - HPI Summary HPI Summary: This patient is a 44 year old female presenting to [facility] with a chief complaint of lower abdomen, flank and back pain. She reports bad stomach ulcer 6-7 months with nausea as continuous symptom. She reports a metallic taste in her mouth. She reports urinary frequency. She states the pain is intermittent. Pt reports wt loss of 45lbs since ulcer started. Pt hx brain tumor with radiation. 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 She states frequent hematemesis. Pt denies any fever, chills, erythema of eyes, sore throat, CP, SOB, cough, dysuria, hematuria, myalgia, edema, rash, or dizziness. - History of Current Complaint Chief Complaint: EDAbdPain Time Seen by Provider: 06/04/19 18:37 Stated Complaint: ABD AND BACK PAIN PER PT Hx Obtained From: Patient Hx Last Menstrual Period: depo Pain Intensity: 8 Location of Pain: Flank Pain Radiates to: Back, LLQ, RLQ - Allergy/Home Medications Allergies/Adverse Reactions: Allergies Allergy/AdvReac Type Severity Reaction Status Date / Time ampicillin Allergy Hives Verified 06/20/19 15:41 doxycycline Allergy Hives Verified 06/20/19 15:41 fluconazole [From Diflucan] Allergy Hives Verified 06/20/19 15:41 nitrofurantoin Allergy Hives Verified 06/20/19 15:41 [From Macrobid] erythromycin base AdvReac Stomach Verified 06/20/19 15:41 Cramps sulfamethoxazole AdvReac Stomach Verified 06/20/19 15:41 [From Bactrim] Cramps trimethoprim [From Bactrim] AdvReac Stomach Verified 06/20/19 15:41 Cramps Home Medications: Home Medications DULoxetine DR CAP* [Cymbalta CAP*] 30 mg PO DAILY 06/04/19 [History Confirmed ] DULoxetine DR CAP* [Cymbalta CAP*] 60 mg PO DAILY 06/04/19 [History Confirmed ] Levothyroxine TAB* [Synthroid TAB*] 150 mcg PO DAILY 06/04/19 [History Confirmed 06/04/19] Sucralfate TAB* [Carafate*] 1 gm PO ACHS 06/04/19 [History Confirmed 12/23/19] PMH/Surg Hx/FS Hx/Imm Hx Endocrine/Hematology History: Reports: Hx Thyroid Disease Denies: Hx Diabetes Cardiovascular History: Reports: Hx Hypertension Denies: Hx Pacemaker/ICD Respiratory History: Denies: Hx Asthma, Hx Chronic Obstructive Pulmonary Disease (COPD) GI History: Denies: Hx Ulcer History: Denies: Hx Dialysis, Hx Renal Disease Musculoskeletal History: Reports: Hx Fibromyalgia Sensory History: Denies: Hx Eye Prosthesis, Hx Deafness, Hx Hearing Aid Opthamlomology History: Denies: Hx Eye Prosthesis Neurological History: Denies: Hx Developmental Delay Psychiatric History: Denies: Hx Autism, Hx Panic Disorder - Cancer History Cancer Type, Location and Year: Brain Tumor x2. stomach ulcer Hx Radiation Therapy: Yes - 30 rounds - Surgical History Surgery Procedure, Year, and Place: intranasal tumor biopsy from brain - Immunization History Date of Tetanus Vaccine: unk Date of Influenza Vaccine: unk Infectious Disease History: No Infectious Disease History: Denies: Hx Hepatitis, Hx Human Immunodeficiency Virus (HIV), History Other Infectious Disease, Traveled Outside the [place] in Last 30 Days - Family History Known Family History: Positive: Renal Disease Negative: Cardiac Disease, Diabetes - Social History Alcohol Use: None Alcohol Amount: allergic Substance Use Type: Reports: None Smoking Status (MU): Never Smoked Tobacco Review of Systems Negative: Fever, Chills Negative: Erythema Negative: Sore Throat Negative: Chest Pain Negative: Shortness Of Breath, Cough Positive: Abdominal Pain, Nausea, Other - Hematemesis Positive: frequency, flank pain. Negative: dysuria, hematuria Positive: Other - Back pain Negative: Rash Neurological: Other - Neg: Dizziness All Other Systems Reviewed And Are Negative: No Physical Exam - Summary Physical Exam Summary: Constitutional: Well-developed, Well-nourished, Alert. (-) Distressed Skin: Warm, Dry HENT: Normocephalic; Atraumatic Eyes: Conjunctiva normal Neck: Musculoskeletal ROM normal neck. (-) JVD, (-) Stridor, (-) Tracheal deviation Cardio: Rhythm regular, rate normal, Heart sounds normal; Intact distal pulses; The pedal pulses are 2+ and symmetric. Radial pulses are 2+ and symmetric. (-) Murmur Pulmonary/Chest wall: Effort normal. (-) Respiratory distress, (-) Wheezes, (-) Rales Abd: Soft, (-) tenderness, (-) Distension, (-) Guarding, (-) Rebound Musculoskeletal: (-) Edema Lymph: (-) Cervical adenopathy Neuro: Alert, Oriented x3 Psych: Mood and affect Normal Triage Information Reviewed: Yes Vital Signs On Initial Exam: Initial Vitals Temp Pulse Resp BP Pulse Ox 96.2 F 92 18 168/134 99 06/04/19 17:52 06/04/19 17:52 06/04/19 17:52 06/04/19 17:52 06/04/19 17:52 Vital Signs Reviewed: Yes Procedures - Sedation Patient Received Moderate/Deep Sedation with Procedure: No Diagnostics - Vital Signs Vital Signs Temp Pulse Resp BP Pulse Ox 06/04/19 17:52 96.2 F 92 18 168/134 99 - Laboratory Lab Results: Lab Results 06/04/19 Range/Units 18:32 WBC 8.4 (3.5-10.8) 10^3/uL RBC 5.46 H (3.70-4.87) 10^6 /uL Hgb 13.3 (12.0-16.0) g/dL Hct 41 (35-47) % MCV 75 L (80-97) fL MCH 24 L (27-31) pg MCHC 33 (31-36) g/dL RDW 16 H (10-15) % Plt Count 360 (150-450) 10^3/uL MPV 8.2 (7.4-10.4) fL Neut % (Auto) 60.0 % Lymph % (Auto) 28.3 % [place] % (Auto) 6.8 % Eos % (Auto) 3.5 % Baso % (Auto) 1.4 % Absolute Neuts (auto) 5.0 (1.5-7.7) 10^3/ul Absolute Lymphs (auto) 2.4 (1.0-4.8) 10^3/ul Absolute Monos (auto) 0.6 (0-0.8) 10^3/ul Absolute Eos (auto) 0.3 (0-0.6) 10^3/ul Absolute Basos (auto) 0.1 (0-0.2) 10^3/ul Absolute Nucleated RBC 0.0 10^3/ul Nucleated RBC % 0.1 Result Diagrams: 06/04/19 18:32 06/04/19 18:32 Lab Statement: Any lab studies that have been ordered have been reviewed, and results considered in the medical decision making process. - CT Abd/Pel CT Interpretation Completed By: Radiologist Summary of CT Findings: No CT findings to correlate with patient's symptomology. ED Provider has reviewed this report. - Ultrasound No standard instances Ultrasound Interpretation Completed By: Radiologist Summary of Ultrasound Findings: Gallbladder: Hepaticsteatosis and associated hepatomegaly. No additional findings to correlate with patient's symptomology. ED Provider has reviewed this report. Transvaginal: Nonspecific small volume endometrial canal fluid. Ovaries not visualized. ED Provider has reviewed this report. Re-Evaluation - Re-Evaluation First Eval Re-Evaluation Time: 21:26 Change: Unchanged Comment: Tolerated PO. GIGU Course/Dx - Course Course Of Treatment: This patient is a 44 year old female presenting to [facility] with a chief complaint of lower abdomen, flank and back pain. Labs reveal RBC 5.46 H, MCV 75 L, MCH 24 L, RDW 16 H, Creatinine 1.13H , Ur Leukocyte Esterase 1+A, Urine WBC 1+ A, Ur Squamous Epith Cells Present A, Urine Bacteria 2+ A, Hyaline Casts Present A. Transvaginal US reveals Nonspecific small volume endometrial canal fluid. Ovaries not visualized. No signs of Pyelonephritis at this point. Plan for discharge was discussed with the patient and she was agreeable with this plan. - Diagnoses Provider Diagnoses: Metallic taste, UTI (urinary tract infection) Discharge ED - Sign-Out/Discharge Documenting (check all that apply): Patient Departure - Discharge - Discharge Plan Condition: Stable Disposition: HOME Prescriptions: Cephalexin CAP* [Keflex CAP*] 500 mg PO QID #20 cap traMADol TAB* [Ultram*] 50 mg PO Q6HR PRN #10 tab MDD 4 PRN Reason: Pain - Severe Patient Education Materials: Urinary Tract Infection in Women (ED) Referrals: Jewels Foy [Primary Care Provider] - 2 Days Additional Instructions: Return to ED with new or worsening symptoms. - Billing Disposition and Condition Condition: STABLE Disposition: Home - Attestation Statements Document Initiated by Scribe: Yes Documenting Scribe: Major Menendez Provider For Whom Scribe is Documenting (Include Credential): Abad Myers MD Scribe Attestation: Major Disla, scribed for Abad Myers MD on 06/21/19 at 1417. Scribe Documentation Reviewed: Yes Provider Attestation: The documentation as recorded by the scribe, Major Menendez accurately reflects the service I personally performed and the decisions made by me, Abad Myers MD Status of Scribe Document: Viewed
[2019-06-04 19:07] LABS: ALT 12 U/L (7-52); AST 17 U/L (13-39); Albumin 4.3 g/dL (3.2-5.2); Albumin/Globulin Ratio 1.2 (1-3); Alkaline Phosphatase 97 U/L (34-104); Anion Gap 6 mmol/L (2-11); Blood Urea Nitrogen 9 mg/dL (6-24); C Reactive Protein 4.69 mg/L (<8.01); CO2 Carbon Dioxide 29 mmol/L (22-32); Calcium 9.3 mg/dL (8.6-10.3); Chloride 105 mmol/L (101-111); EGFR Non-African American 52.1 (>60); Globulin 3.6 g/dL (2-4); Glucose 94 mg/dL (70-100); Potassium 3.9 mmol/L (3.5-5.0); Sodium 140 mmol/L (135-145); Total Protein 7.9 g/dL (6.4-8.9)
[2019-06-04] MEDS ORDERED: Iodixanol* (CONTRAST) 320 MG/ML 100 ML SDV IV ONE (19:09)
[2019-06-04 19:35] LABS: HCG Pregnancy < 0.60 mIU/mL
[2019-06-04 19:50] LABS: Urine Appearance Cloudy; Urine Bilirubin Negative (Negative); Urine Blood Negative (Negative); Urine Color Yellow; Urine Glucose Negative (Negative); Urine Ketones Negative (Negative); Urine Nitrite Negative (Negative); Urine Protein Negative (Negative); Urine Specific Gravity 1.023 (1.010-1.030); Urine Urobilinogen Negative (Negative)
[2019-06-04 20:02] LABS: Urine Bacteria 2+ (Absent); Urine Red Blood Cell Trace(0-2/hpf) (Absent); Urine Squamous Epithelial Cell Present (Absent); Urine White Blood Cell 1+(6-10/hpf) (Absent)
[2019-06-04] MEDS ORDERED: Cephalexin CAP* 500 MG PO ONE (21:10)
[2019-06-04 21:39] VITALS: BP 161/113
== END 2019-06-04 21:43 | disposition home or self-care (01) ==
LOC: ED 17:51
DX: N39.0 Urinary tract infection, site not specified (principal); R43.8 Other disturbances of smell and taste; E03.9 Hypothyroidism, unspecified; I10 Essential (primary) hypertension; Z79.890 Hormone replacement therapy; Z79.899 Other long term (current) drug therapy; Z88.1 Allergy status to other antibiotic agents; Z88.2 Allergy status to sulfonamides
CPT/HCPCS: 36415; 74177; 76705; 76830; 80053; 81003; 81015; 83605; 83690; 84702; 85025; 86140; 87086; 99283; A9270-GY; Q9967